=== PATIENT | female | born 1950 | race Caucasian/White ===

== ENCOUNTER → 2016-09-10 | Outpatient (CLI) | payer MEDICARE ==
[2015-01-27 12:00] VITALS: BP 120/74
[~2016-09-10] MED LIST: CHOL2000 PO; CRAN1TAB6 PO; CYAN10002 IM; DOCU-109 PO; DULO30CA2 PO; DULO60CA6 PO; HYDR-2762 PO; LEVO125T5 PO; OMEP20CA9 PO; OXYB10TA7 PO; TOLT4CAP PO; VENL150C PO
--- NOTE | 2016-09-10 16:08 | KCIC ---
MRI Lumbar Spine without contrast History: Lumbago with left sciatica, chronic back pain, previous surgery Technique: Multiplanar, multi sequential noncontrast MR imaging was performed of the lumbar spine. Contrast: None Comparison: None Findings: Lumbar vertebral body stature is maintained. There is mild grade 1 anterior spondylolisthesis at L3-4, negligible posterior subluxation L2 on L3 and L3. There is advanced degenerative disc disease at L1-L2, to a lesser degree L2-3 and L3-4. Amorphous edema about the L1-L2 endplates is probably reactive/degenerative in etiology. There is amorphous edema of the left T12 vertebral body. Conus terminates at L1. There is mild reverse S shaped curvature of the lumbar spine. T12-L1: Neural foramina and spinal canal are adequate. L1-L2: There is broad posterior bulge relatively greater in the right lateral recess. Spinal canal is overall adequate. There is mild buckling of the ligamentum flavum and prominence of posterior epidural fat. Neural foramina are overall adequate. L2-L3: There is minimal bulge. There is mild buckling of the ligamentum flavum. There is minimal narrowing of the far left lateral recess. There is mild narrowing of the left neural foramen, right neural foramen adequate. L3-L4: There is left laminectomy defect. There is mild facet hypertrophic change. There is minimal posterior bulge. There is mild narrowing of the far right lateral recess. There is very mild right and [id number] left neural foramina compromise. L4-L5: There is mild buckling of the ligamentum flavum. There is mild narrowing of the far left lateral recess. Neural foramina are adequate. L5-S1: Neural foramina and spinal canal are adequate. There is mild facet degenerative change greater on the right. Impression: 1. There is no significant lumbar spinal stenosis, mild lateral recess stenosis on the right at L3-4 and on the left at L4-5. 2. There is advanced degenerative disc disease L1-2, to lesser degree at L2-3 and L3-4. Endplate edema at L1-2 is likely reactive/degenerative in etiology. There is amorphous edema of the left lateral T12 vertebral body otherwise difficult to characterize, etiology uncertain. 3. There is [id number] narrowing of the left L3-4 neural foramen, other minimal narrowing as stated. 4. There is mild abnormal alignment as described. Electronically signed by: Samuel Rodas MD (09/10/2016 4:05 PM)
== END | disposition home or self-care (01) ==
LOC: KCIC MRI 15:11
PROVIDERS: ATTEND Physician Assistant Medical
DX: M51.36 Other intervertebral disc degeneration, lumbar region (principal); M54.42 Lumbago with sciatica, left side
CPT/HCPCS: 72148